=== PATIENT | female | born 1995 | race Two or more races ===

== ENCOUNTER 2017-12-31 14:48 | Outpatient (CLI) | payer BC, OTHER | END 2017-12-31 23:59 | disposition home or self-care (01) | LOC: 64 CT 14:48 | PROVIDERS: ATTEND Family Medicine | DX: G93.0 Cerebral cysts (principal); R13.14 Dysphagia, pharyngoesophageal phase; R43.9 Unspecified disturbances of smell and taste | CPT/HCPCS: 70450; 70486 ==

== ENCOUNTER 2018-02-09 15:04 | Outpatient (CLI) | payer OTHER | END 2018-02-09 23:59 | disposition home or self-care (01) | LOC: RAD 15:04 | PROVIDERS: ATTEND Family Medicine | DX: G93.0 Cerebral cysts (principal); R13.14 Dysphagia, pharyngoesophageal phase; R43.8 Other disturbances of smell and taste | CPT/HCPCS: 70551 ==

== ENCOUNTER 2018-05-05 07:43 | Day surgery (SDC) | payer OTHER ==
[~2018-05-05] VITALS: Ht 162.6 cm; Wt 47.7 kg
[2018-05-05 07:50] VITALS: BP 110/69
[2018-05-05] MEDS ORDERED: NO HOME MEDS (07:54)
[2018-05-05 08:07] LABS: PREOP URINE HCG NEGATIVE (NEGATIVE)
[2018-05-05] MEDS ORDERED: fentaNYL/PF 50MCG/1 ML 2ML syringe ONE (08:47)
[2018-05-05] MEDS ORDERED: MIDAZolam 5mg/5ml vial ONE (08:47)
[2018-05-05] MEDS ORDERED: LIDOcaine Viscous 15ml cup ONE (08:47)
[2018-05-05] MEDS ORDERED: ondansetron/PF 4mg/2ml inj ONE (08:57)
[2018-05-05 09:45] VITALS: BP 125/89
[2018-05-05 09:55] VITALS: BP 109/69
[2018-05-05 10:05] VITALS: BP 102/69
[2018-05-05 10:15] VITALS: BP 105/69
== END 2018-05-05 10:20 | disposition home or self-care (01) ==
LOC: GI LAB 07:43
PROVIDERS: ATTEND Internal Medicine Gastroenterology
DX: R13.14 Dysphagia, pharyngoesophageal phase (principal); K22.8 Other specified diseases of esophagus; Z86.69 Personal history of other diseases of the nervous system and sense organs
CPT/HCPCS: 43239; 43453; 81025; 99152; J2250; J2405; J3010; J7030; A4620

== ENCOUNTER 2018-07-23 08:50 | Outpatient (CLI) | payer OTHER ==
[~2018-07-23 08:50] MED LIST: NO HOME MEDS
[2018-07-23] MEDS ORDERED: barium sulfate 450ml oral suspension ONE (09:00)
== END 2018-07-23 23:59 | disposition home or self-care (01) ==
LOC: RAD 08:50
PROVIDERS: ATTEND Internal Medicine Gastroenterology
DX: R13.10 Dysphagia, unspecified (principal)
CPT/HCPCS: 74220

== ENCOUNTER 2018-08-27 11:12 | Outpatient (CLI) | payer OTHER ==
[2018-08-27 12:00] LABS: BASOPHILS # (AUTO) 0.1 X10'3 (0-0.2); EOSINOPHILS # (AUTO) 0.2 X10'3 (0-0.9); EOSINOPHILS % (AUTO) 2.2 % (0-6); HEMOGLOBIN 13.8 g/dl (12.0-16.0); LYMPHOCYTES # (AUTO) 3.3 X10'3 (1.1-4.8); LYMPHOCYTES % (AUTO) 45.6 % (21-51); MEAN CORPUSCULAR HGB CONC 33.5 g/dL (33.0-36.5); MEAN CORPUSCULAR VOLUME 89.5 FL (78-98); MEAN PLATELET VOLUME 6.8 FL (7.4-10.4); MONOCYTES # (AUTO) 0.5 X10'3 (0-0.9); NEUTROPHILS # (AUTO) 3.2 X10'3 (1.8-7.7); NEUTROPHILS % (AUTO) 44.2 % (42-75); PLATELET COUNT 373 X10'3 (140-440); RED BLOOD COUNT 4.58 X10'6 (4.20-5.60); RED CELL DISTRIBUTION WIDTH 13.6 % (11.5-14.5); WHITE BLOOD COUNT 7.3 X10'3 (4.5-11.0)
[2018-08-27 12:21] LABS: CLARITY,URINE CLEAR (Clear); COLOR,URINE YELLOW (Yellow); GLUCOSE, URINE NEGATIVE (Neg); KETONES,URINE NEGATIVE (Neg); LEUKOCYTE ESTERASE ,URINE NEGATIVE (Neg); NITRITES, URINE NEGATIVE (Neg); OCCULT BLOOD,URINE TRACE-INTACT (Neg); PROTEIN,URINE NEGATIVE (Neg); UROBILINOGEN,URINE 0.2 E.U/dL (0.2-1.0)
[2018-08-27 12:29] LABS: ALANINE AMINOTRANSFERASE 24 U/L (12-78); ALBUMIN 3.8 G/DL (3.4-5.0); ALBUMIN/GLOBULIN RATIO 1.2 (1.1-1.5); ALKALINE PHOSPHATASE 90 IU/L (46-116); ANION GAP 8 (8-16); ASPARTATE AMINO TRANSFERASE 14 U/L (10-37); BILIRUBIN,TOTAL 0.5 MG/DL (0.1-1.0); BLOOD UREA NITROGEN 9 MG/DL (7-18); BUN/CREATININE RATIO 13.6 (6.6-38.0); CALCIUM 9.3 MG/DL (8.5-10.1); CHLORIDE 104 MMOL/L (99-107); CHOL/HDL RATIO 2.7 (0.00-4.99); CHOLESTEROL 153 MG/DL (0-200); CREATININE 0.66 MG/DL (0.40-0.90); GLUCOSE 86 MG/DL (70-104); HDL CHOLESTEROL 56 MG/DL (35-60); LDL CHOLESTEROL 87 MG/DL (50-100); POTASSIUM 3.8 MMOL/L (3.5-5.1); SODIUM 142 MMOL/L (135-145); TOTAL CARBON DIOXIDE 29.7 MMOL/L (24-32); TRIGLYCERIDES 74 MG/DL (20-135); eGFR > 90 ML/MIN
[2018-08-27 12:34] LABS: UA COLLECTION TYPE VOIDED
[2018-08-27 12:35] LABS: BACTERIA,URINE 1+ /HPF (Neg); RBC,URINE 0-2 /HPF (0-2); SQUAMOUS EPITHELIAL CELL,UR MODERATE /LPF (FEW); WBC,URINE 0-4 /HPF (0-4)
[2018-08-27 12:36] LABS: MUCUS STRANDS NONE SEEN /LPF (Neg)
== END 2018-08-27 23:59 | disposition home or self-care (01) ==
LOC: LAB 11:12
PROVIDERS: ATTEND Family Medicine
DX: Z76.89 Persons encountering health services in other specified circumstances (principal)
CPT/HCPCS: 36415; 80053; 80061; 81001; 84436; 84443; 85025

== ENCOUNTER 2018-10-14 12:36 | Outpatient (CLI) | payer OTHER | END 2018-10-14 23:59 | disposition home or self-care (01) | LOC: RAD 12:36 | PROVIDERS: ATTEND Family Medicine | DX: M50.221 Other cervical disc displacement at C4-C5 level (principal); I65.23 Occlusion and stenosis of bilateral carotid arteries; I77.74 Dissection of vertebral artery; R43.8 Other disturbances of smell and taste | CPT/HCPCS: 70540; 70547; 72141 ==

== ENCOUNTER 2019-06-25 15:32 | Inpatient (IN) | payer OTHER ==
[~2019-06-25] VITALS: Ht 160 cm; Wt 48.5 kg
[2019-06-25] MEDS ORDERED: acetaminophen 325mg tablet PO ONE (15:55)
--- NOTE | 2019-06-25 16:43 | NUR ---
Pt ambulated to the restroom without difficulty.
[2019-06-25 17:00] LABS: CLARITY,URINE CLOUDY (Clear); COLOR,URINE YELLOW (Yellow); GLUCOSE, URINE NEGATIVE (Neg); KETONES,URINE 15 mg/dl (Neg); LEUKOCYTE ESTERASE ,URINE NEGATIVE (Neg); NITRITES, URINE NEGATIVE (Neg); OCCULT BLOOD,URINE MODERATE (Neg); PH,URINE 6.5 (4.8-8.0); PROTEIN,URINE NEGATIVE (Neg); UROBILINOGEN,URINE 0.2 E.U/dL (0.2-1.0)
[2019-06-25 17:01] LABS: URINE HCG NEGATIVE (NEG)
[2019-06-25 17:03] LABS: UA COLLECTION TYPE CLN CATCH MIDSTREAM
[2019-06-25 17:06] LABS: RBC,URINE 0-2 /HPF (0-2); WBC,URINE 0-4 /HPF (0-4)
[2019-06-25 17:07] LABS: BACTERIA,URINE 2+ /HPF (Neg); MUCUS STRANDS FEW /LPF (Neg); SQUAMOUS EPITHELIAL CELL,UR MANY /LPF (FEW)
[2019-06-25 17:13] LABS: URINE AMPHETAMINE SCREEN NEGATIVE (Neg); URINE BARBITUATE SCREEN NEGATIVE (Neg); URINE BENZODIAZEPINES SCREEN NEGATIVE (Neg); URINE CANNABINOID SCREEN NEGATIVE (Neg); URINE COCAINE SCREEN NEGATIVE (Neg); URINE METHADONE SCREEN NEGATIVE (Neg); URINE OPIATE SCREEN NEGATIVE (Neg); URINE PHENCYCLIDINE SCREEN NEGATIVE (Neg)
[2019-06-25 17:25] LABS: BASOPHILS # (AUTO) 0.1 X10'3 (0-0.2); BASOPHILS % (AUTO) 0.4 % (0-1); EOSINOPHILS % (AUTO) 0 % (0-6); HEMATOCRIT 38.3 % (35.0-45.0); HEMOGLOBIN 13.1 g/dl (12.0-16.0); LYMPHOCYTES # (AUTO) 1.9 X10'3 (1.1-4.8); LYMPHOCYTES % (AUTO) 13.7 % (21-51); MEAN CORPUSCULAR HGB CONC 34.3 g/dL (33.0-36.5); MEAN CORPUSCULAR VOLUME 87.6 FL (78-98); MEAN PLATELET VOLUME 6.9 FL (7.4-10.4); MONOCYTES # (AUTO) 1.8 X10'3 (0-0.9); MONOCYTES % (AUTO) 12.7 % (2-12); NEUTROPHILS # (AUTO) 10.3 X10'3 (1.8-7.7); NEUTROPHILS % (AUTO) 73.2 % (42-75); PLATELET COUNT 322 X10'3 (140-440); RED BLOOD COUNT 4.37 X10'6 (4.20-5.60); RED CELL DISTRIBUTION WIDTH 13.5 % (11.5-14.5)
[2019-06-25] MEDS ORDERED: ibuprofen 200mg tablet PO ONE (17:35)
[2019-06-25] MEDS ORDERED: normal saline 1000ML IV soln IVB ONE (17:35)
[2019-06-25 17:49] LABS: ALANINE AMINOTRANSFERASE 16 U/L (12-78); ALBUMIN 3.9 G/DL (3.4-5.0); ALBUMIN/GLOBULIN RATIO 1.1 (1.1-1.5); ALKALINE PHOSPHATASE 80 IU/L (46-116); ANION GAP 13 (8-16); ASPARTATE AMINO TRANSFERASE 12 U/L (10-37); BILIRUBIN,TOTAL 0.5 MG/DL (0.1-1.0); BLOOD UREA NITROGEN 13 MG/DL (7-18); BUN/CREATININE RATIO 21.7 (6.6-38.0); CALCIUM 8.7 MG/DL (8.5-10.1); CHLORIDE 96 MMOL/L (99-107); GLUCOSE 134 MG/DL (70-104); SODIUM 133 MMOL/L (135-145); TOTAL CARBON DIOXIDE 24.1 MMOL/L (24-32); TOTAL PROTEIN 7.6 G/DL (6.4-8.2); eGFR > 90 ML/MIN
[2019-06-25] MEDS ORDERED: potassium Cl 20 mEq SR tablet PO STA (17:58)
[2019-06-25] MEDS ORDERED: dexamethasone sod phosphate 10mg/ml inj IV STA (20:57)
[2019-06-25] MEDS ORDERED: ondansetron/PF 4mg/2ml inj IV PRN (21:00)
[2019-06-25] MEDS ORDERED: magnesium 2GM in 50ml NS 50 ML IV PRN (21:00)
[2019-06-25] MEDS ORDERED: magnesium hydroxide 30ml (MOM) UD suspension PO PRN (21:00)
[2019-06-25] MEDS ORDERED: magnesium Cl slow-release 64mg tablet PO PRN (21:00)
[2019-06-25] MEDS ORDERED: normal saline 1000ml 1,000 ML IV ONE (21:00)
[2019-06-25] MEDS ORDERED: mag hydrox/Alum hydrox/simeth 30ml oral suspension PO PRN (21:00)
[2019-06-25] MEDS ORDERED: CefTRIAXone 2gm/D5W 50ml 50 ML IV ONE (21:00)
[2019-06-25] MEDS ORDERED: potassium Cl 20 mEq SR tablet PO PRN (21:00)
[2019-06-25] MEDS ORDERED: potassium CL 10mEq/100ml bag 100 ML IV PRN ×2 (21:00)
[2019-06-25] MEDS ORDERED: magnesium 4gm in 100ml NS 100 ML IV PRN (21:00)
[2019-06-25 21:42] LABS: GLUCOSE,CSF 80 MG/DL (40-75); TOTAL PROTEIN,CSF 42 MG/DL (15-45)
[2019-06-25 21:43] LABS: APPEARANCE,CSF CLEAR
[2019-06-25 21:44] LABS: CSF SUPERNATANT COLOR COLORLESS; CSF VOLUME 8 ML; TUBE# COUNTED 1
[2019-06-25 21:45] LABS: CSF RBC 5 /CU MM (0); LYMPHOCYTES,CSF 98 % (40-80); MONOCYTES,CSF 2 % (15-45)
[2019-06-25 21:47] LABS: APPEARANCE,CSF CLEAR; CSF SUPERNATANT COLOR COLORLESS; CSF VOLUME 8 ML; CSF WBC CT 63 /CU MM (0-5); TUBE# COUNTED 4
[2019-06-25 21:49] LABS: CSF RBC 0 /CU MM (0); CSF WBC CT 61 /CU MM (0-5); LYMPHOCYTES,CSF 96 % (40-80); MONOCYTES,CSF 4 % (15-45)
[2019-06-25] MEDS ORDERED: ibuprofen tablet 400 MG TABLET PO PRN (22:40)
[2019-06-25] MEDS ORDERED: NORMAL SALINE IV SCH (22:56)
[2019-06-25] MEDS ORDERED: ACYCLOVIR IV SCH (22:56)
[2019-06-25] MEDS ORDERED: acyclovir inj 500 MG in normal saline 100ml IV soln 100 ML IV ONE (23:15)
--- NOTE | 2019-06-26 00:15 | NUR ---
Patient arrived to unit via wheelchair. Altered LOC, word salad noted, patient only oriented to person, is aware of her occupation, can give her birthdate and spouses name. Patient is unable to remember the name of the unit she is employed on or the name of the facility yet knows she works here.
[2019-06-26 03:21] VITALS: BP 132/80
[2019-06-26] MEDS: acetaminophen 325mg tablet PO PRN ×3 (04:53→20:30)
[2019-06-26] MEDS: acyclovir inj 500 MG in normal saline 100ml IV soln 100 ML IV SCH ×3 (05:56→21:53)
[2019-06-26 06:00] VITALS: BP 117/70
--- NOTE | 2019-06-26 06:20 | NUR ---
Problems reprioritized. Patient report given, questions answered & plan of care reviewed with Lennie ALBERTS.
--- NOTE | 2019-06-26 06:43 | NUR ---
This RN noted change in patient mental status. patient was not only having word salad now was not comprehending what this RN was asking.
[2019-06-26 08:00] LABS: BASOPHILS % (AUTO) 0.2 % (0-1); EOSINOPHILS % (AUTO) 0 % (0-6); HEMATOCRIT 37.7 % (35.0-45.0); HEMOGLOBIN 12.9 g/dl (12.0-16.0); LYMPHOCYTES # (AUTO) 1.2 X10'3 (1.1-4.8); LYMPHOCYTES % (AUTO) 14.5 % (21-51); MEAN CORPUSCULAR HEMOGLOBIN 29.8 PG (27.0-31.0); MEAN CORPUSCULAR HGB CONC 34.2 g/dL (33.0-36.5); MEAN CORPUSCULAR VOLUME 87.2 FL (78-98); MEAN PLATELET VOLUME 6.8 FL (7.4-10.4); MONOCYTES # (AUTO) 1.1 X10'3 (0-0.9); NEUTROPHILS % (AUTO) 72.3 % (42-75); PLATELET COUNT 314 X10'3 (140-440); RED BLOOD COUNT 4.32 X10'6 (4.20-5.60); RED CELL DISTRIBUTION WIDTH 13.8 % (11.5-14.5); WHITE BLOOD COUNT 8.3 X10'3 (4.5-11.0)
[2019-06-26] MEDS: K and/or MAG REPLACEMENT MC SCH ×2 (08:00→20:00)
[2019-06-26 08:11] LABS: ALBUMIN 3.6 G/DL (3.4-5.0); ANION GAP 9 (8-16); BLOOD UREA NITROGEN 6 MG/DL (7-18); BUN/CREATININE RATIO 10.2 (6.6-38.0); CALCIUM 8.4 MG/DL (8.5-10.1); CHLORIDE 101 MMOL/L (99-107); CREATININE 0.59 MG/DL (0.40-0.90); GLUCOSE 133 MG/DL (70-104); MAGNESIUM 2.1 MG/DL (1.5-2.4); POTASSIUM 3.5 MMOL/L (3.5-5.1); SODIUM 133 MMOL/L (135-145); TOTAL CARBON DIOXIDE 23.3 MMOL/L (24-32); eGFR > 90 ML/MIN
[2019-06-26] MEDS ORDERED: LORazepam 2 mg/ml vial IV PRN (09:00)
[2019-06-26] MEDS: CefTRIAXone 2gm/D5W 50ml 50 ML IV SCH ×2 (09:19→19:29)
[2019-06-26 10:00] VITALS: BP 111/72
[2019-06-26] MEDS: enoxaparin 40mg/0.4ml syringe SQ SCH (11:00)
[2019-06-26] MEDS: normal saline 1000ml 1,000 ML IV SCH (11:49)
[2019-06-26] MEDS ORDERED: gadobutrol 10mmol/10ml inj. IV ONE (16:04)
[2019-06-26 18:00] VITALS: BP 109/73
--- NOTE | 2019-06-26 18:20 | NUR ---
Received patient report from LEXUS Jones.
[2019-06-26 22:00] VITALS: BP 123/70
[2019-06-27 02:00] VITALS: BP 131/84
[2019-06-27] MEDS: acetaminophen 325mg tablet PO PRN ×2 (02:54→16:03)
[2019-06-27] MEDS: acyclovir inj 500 MG in normal saline 100ml IV soln 100 ML IV SCH ×3 (05:43→22:17)
[2019-06-27] MEDS: normal saline 1000ml 1,000 ML IV SCH ×3 (05:43→19:27)
[2019-06-27 06:00] VITALS: BP 114/63
[2019-06-27 06:01] LABS: ALBUMIN 3.1 G/DL (3.4-5.0); ANION GAP 6 (8-16); BLOOD UREA NITROGEN 6 MG/DL (7-18); BUN/CREATININE RATIO 9.1 (6.6-38.0); CALCIUM 8.1 MG/DL (8.5-10.1); CHLORIDE 105 MMOL/L (99-107); CREATININE 0.66 MG/DL (0.40-0.90); GLUCOSE 97 MG/DL (70-104); MAGNESIUM 2.1 MG/DL (1.5-2.4); POTASSIUM 3.1 MMOL/L (3.5-5.1); SODIUM 138 MMOL/L (135-145); TOTAL CARBON DIOXIDE 27.4 MMOL/L (24-32); eGFR > 90 ML/MIN
[2019-06-27 06:16] LABS: BASOPHILS # (AUTO) 0.1 X10'3 (0-0.2); BASOPHILS % (AUTO) 0.7 % (0-1); EOSINOPHILS % (AUTO) 0.5 % (0-6); HEMATOCRIT 35.8 % (35.0-45.0); HEMOGLOBIN 12.4 g/dl (12.0-16.0); LYMPHOCYTES # (AUTO) 2.6 X10'3 (1.1-4.8); LYMPHOCYTES % (AUTO) 30.4 % (21-51); MEAN CORPUSCULAR HEMOGLOBIN 30.2 PG (27.0-31.0); MEAN CORPUSCULAR HGB CONC 34.7 g/dL (33.0-36.5); MEAN PLATELET VOLUME 6.9 FL (7.4-10.4); MONOCYTES # (AUTO) 1.3 X10'3 (0-0.9); MONOCYTES % (AUTO) 15.3 % (2-12); NEUTROPHILS # (AUTO) 4.5 X10'3 (1.8-7.7); NEUTROPHILS % (AUTO) 53.1 % (42-75); PLATELET COUNT 292 X10'3 (140-440); RED BLOOD COUNT 4.11 X10'6 (4.20-5.60); RED CELL DISTRIBUTION WIDTH 13.7 % (11.5-14.5); WHITE BLOOD COUNT 8.4 X10'3 (4.5-11.0)
--- NOTE | 2019-06-27 06:27 | NUR ---
Patient report given, questions answered and plan of care reviewed with LEXUS Jones.
[2019-06-27] MEDS: K and/or MAG REPLACEMENT MC SCH ×2 (08:00→20:00)
[2019-06-27] MEDS: potassium Cl 20 mEq SR tablet PO PRN ×3 (09:21→23:25)
[2019-06-27] MEDS: enoxaparin 40mg/0.4ml syringe SQ SCH (09:23)
[2019-06-27 10:00] VITALS: BP 118/74
[2019-06-27 16:00] VITALS: BP 112/69
--- NOTE | 2019-06-27 16:10 | NUR ---
Tylenol given po, then notified Dr Saldana of elevated temp & treatment. Continue to monitor.
[2019-06-27 18:00] VITALS: BP 100/54
--- NOTE | 2019-06-27 18:33 | NUR ---
RECEIVED REPORT FROM MAYTE ALBERTS AND ASSUMED PATIENT CARE
--- NOTE | 2019-06-27 21:23 | NUR ---
REPORT GIVEN TO KATEY LEXUS
[2019-06-27 22:00] VITALS: BP 97/62
[2019-06-28] VITALS (7 sets, daily range): BP systolic 99–113; BP diastolic 51–73
[2019-06-28] MEDS: acetaminophen 325mg tablet PO PRN ×3 (01:54→22:08)
[2019-06-28] MEDS: acyclovir inj 500 MG in normal saline 100ml IV soln 100 ML IV SCH ×3 (05:43→21:13)
[2019-06-28 06:31] LABS: BASOPHILS # (AUTO) 0.1 X10'3 (0-0.2); BASOPHILS % (AUTO) 0.7 % (0-1); EOSINOPHILS # (AUTO) 0.1 X10'3 (0-0.9); EOSINOPHILS % (AUTO) 0.8 % (0-6); HEMATOCRIT 35.8 % (35.0-45.0); HEMOGLOBIN 12.4 g/dl (12.0-16.0); LYMPHOCYTES # (AUTO) 3.7 X10'3 (1.1-4.8); LYMPHOCYTES % (AUTO) 47.8 % (21-51); MEAN CORPUSCULAR HEMOGLOBIN 30.6 PG (27.0-31.0); MEAN CORPUSCULAR HGB CONC 34.7 g/dL (33.0-36.5); MEAN CORPUSCULAR VOLUME 88.1 FL (78-98); MEAN PLATELET VOLUME 6.9 FL (7.4-10.4); MONOCYTES % (AUTO) 12.6 % (2-12); NEUTROPHILS # (AUTO) 2.9 X10'3 (1.8-7.7); NEUTROPHILS % (AUTO) 38.1 % (42-75); PLATELET COUNT 263 X10'3 (140-440); RED BLOOD COUNT 4.06 X10'6 (4.20-5.60); RED CELL DISTRIBUTION WIDTH 13.6 % (11.5-14.5); WHITE BLOOD COUNT 7.7 X10'3 (4.5-11.0)
[2019-06-28 06:43] LABS: ALBUMIN 2.8 G/DL (3.4-5.0); ANION GAP 5 (8-16); BLOOD UREA NITROGEN 7 MG/DL (7-18); BUN/CREATININE RATIO 12.1 (6.6-38.0); CHLORIDE 108 MMOL/L (99-107); CREATININE 0.58 MG/DL (0.40-0.90); GLUCOSE 90 MG/DL (70-104); MAGNESIUM 2.4 MG/DL (1.5-2.4); POTASSIUM 3.8 MMOL/L (3.5-5.1); SODIUM 141 MMOL/L (135-145); eGFR > 90 ML/MIN
--- NOTE | 2019-06-28 06:54 | NUR ---
Patient in room [facility]TH[facility] 4017. I have received report from LEXUS DEL TORO and had the opportunity to ask questions and assume patient care.
[2019-06-28] MEDS: K and/or MAG REPLACEMENT MC SCH ×2 (07:12→20:00)
[2019-06-28] MEDS: enoxaparin 40mg/0.4ml syringe SQ SCH (09:17)
--- NOTE | 2019-06-28 15:37 | NUR ---
REASSESSED PTS FEVER...DOWN TO 99.7. PT NOTICED PALMS OF BOTH HANDS ARE WARM AND RED.
--- NOTE | 2019-06-28 18:35 | NUR ---
Problems reprioritized. Patient report given, questions answered & plan of care reviewed with LEXUS ZURITA.
--- NOTE | 2019-06-28 19:59 | NUR ---
Patient in room [facility]TH[facility] 4017. I have received report from LEXUS Chacko and had the opportunity to ask questions and assume patient care. Addendum: 06/28/19 at 1999 by Shanelle Trammell RN Amended: Links added.
[2019-06-28] MEDS: normal saline 1000ml 1,000 ML IV SCH (21:14)
[2019-06-29 05:00] VITALS: BP 111/63
[2019-06-29 05:06] LABS: BASOPHILS # (AUTO) 0.1 X10'3 (0-0.2); BASOPHILS % (AUTO) 0.7 % (0-1); EOSINOPHILS # (AUTO) 0.2 X10'3 (0-0.9); EOSINOPHILS % (AUTO) 2.6 % (0-6); HEMATOCRIT 35.8 % (35.0-45.0); HEMOGLOBIN 12.5 g/dl (12.0-16.0); LYMPHOCYTES # (AUTO) 3.6 X10'3 (1.1-4.8); LYMPHOCYTES % (AUTO) 48.8 % (21-51); MEAN CORPUSCULAR HEMOGLOBIN 30.3 PG (27.0-31.0); MEAN CORPUSCULAR HGB CONC 34.8 g/dL (33.0-36.5); MEAN PLATELET VOLUME 6.9 FL (7.4-10.4); MONOCYTES # (AUTO) 0.7 X10'3 (0-0.9); MONOCYTES % (AUTO) 9.9 % (2-12); NEUTROPHILS # (AUTO) 2.8 X10'3 (1.8-7.7); PLATELET COUNT 272 X10'3 (140-440); RED BLOOD COUNT 4.11 X10'6 (4.20-5.60); RED CELL DISTRIBUTION WIDTH 13.6 % (11.5-14.5); WHITE BLOOD COUNT 7.4 X10'3 (4.5-11.0)
[2019-06-29 05:21] VITALS: BP 111/63
[2019-06-29] MEDS: acyclovir inj 500 MG in normal saline 100ml IV soln 100 ML IV SCH ×2 (05:25→14:00)
[2019-06-29 05:33] LABS: ALBUMIN 2.9 G/DL (3.4-5.0); ANION GAP 7 (8-16); BLOOD UREA NITROGEN 5 MG/DL (7-18); BUN/CREATININE RATIO 8.3 (6.6-38.0); CALCIUM 8.1 MG/DL (8.5-10.1); CHLORIDE 107 MMOL/L (99-107); GLUCOSE 90 MG/DL (70-104); MAGNESIUM 2.2 MG/DL (1.5-2.4); POTASSIUM 3.6 MMOL/L (3.5-5.1); SODIUM 140 MMOL/L (135-145); TOTAL CARBON DIOXIDE 26.5 MMOL/L (24-32); eGFR > 90 ML/MIN
--- NOTE | 2019-06-29 06:04 | NUR ---
Problems reprioritized. Patient report given, questions answered & plan of care reviewed with LEXUS Chacko. Addendum: 06/29/19 at 0605 by Shanelle Trammell RN Amended: Links added.
--- NOTE | 2019-06-29 06:22 | NUR ---
Patient in room ORTH[facility] 4017. I have received report from LEXUS Liu and had the opportunity to ask questions and assume patient care.
[2019-06-29 07:24] VITALS: BP 104/80
[2019-06-29] MEDS: acetaminophen 325mg tablet PO PRN (07:56)
[2019-06-29] MEDS: K and/or MAG REPLACEMENT MC SCH (08:00)
[2019-06-29] MEDS: enoxaparin 40mg/0.4ml syringe SQ SCH (08:00)
[2019-06-29 10:00] VITALS: BP 98/52
--- NOTE | 2019-06-29 10:56 | NUR ---
Student documentation: I have reviewed all interventions, assessments performed and documented by Harpreet Deleon. Student Medication Administration: For this medication-pass time frame, all medication were reviewed, dispensed, administered and documented per hospital policy by Harpreet Deleon.
[2019-06-29 12:31] VITALS: BP 96/63
--- NOTE | 2019-06-29 13:51 | NUR ---
Initial: Pt admit w/ HSV encephalitis PO fluctuating overall 75% avg regular meals meeting needs. LBM 06/29 s/p MoM PRN 06/27. No nutrition concerns at this time. Will continue to monitor. Rec: 1. continue regular diet 2. monitor for ONS needs if PO declines 3. bowel care as needed 4. wt per rx Addendum: 06/29/19 at [address] Amended: Links added.
--- NOTE | 2019-06-29 14:34 | NUR ---
PT BEING DC'D, I WAS ADVISED BY CASE MANAGEMENT NOT TO GIVE 1400 ACYCLOVIR. PT IS GOING TO [facility] AFTER DC TO BE SET UP ON MEDICATION.
[2019-06-30 11:29] LABS: HSV 1 PCR Positive (Negative); HSV 2 PCR Negative (Negative)
== END 2019-06-29 15:20 | disposition home health service (06) | DRG 97 ==
LOC: ER 15:33 → EEVIPCON 15:33 → ED HOLD 20:58 → ORTHO 4S 06-26 00:08
PROVIDERS: ADMIT Hospitalist; ATTEND Hospitalist
PROC: 009U3ZX Drainage of Spinal Canal, Percutaneous Approach, Diagnostic (ICD-10-PCS; principal; 2019-06-25)
DX: B00.4 Herpesviral encephalitis (principal); G03.9 Meningitis, unspecified; G93.40 Encephalopathy, unspecified; E87.6 Hypokalemia
CPT/HCPCS: 36415; 36573; 62270; 70450; 70544; 70547; 70551; 71045; 76937; 80048; 80053; 80305; 81001; 81025; 82945; 83605; 83735; 84145; 84157; 85025; 86695; 86696; 87015; 87040; 87070; 87502; 87503; 87529; 89051; 92507; 92508; 92523; 96360; 99285; A9585; G0378; J0133; J0696; J1100; J1650; J2060; J7030

== ENCOUNTER 2019-08-08 22:46 | Emergency (ER) | payer OTHER ==
[~2019-08-08] VITALS: Ht 162.6 cm; Wt 50.0 kg
[2019-08-08 23:44] LABS: EOSINOPHILS # (AUTO) 0.2 X10'3 (0-0.9); MEAN CORPUSCULAR VOLUME 92.2 FL (78-98); MEAN PLATELET VOLUME 6.8 FL (7.4-10.4); WHITE BLOOD COUNT 11.6 X10'3 (4.5-11.0)
[2019-08-08 23:46] LABS: BASOPHILS # (AUTO) 0.1 X10'3 (0-0.2); BASOPHILS % (AUTO) 0.8 % (0-1); EOSINOPHILS % (AUTO) 1.4 % (0-6); HEMATOCRIT 42.3 % (35.0-45.0); LYMPHOCYTES # (AUTO) 4.3 X10'3 (1.1-4.8); MEAN CORPUSCULAR HEMOGLOBIN 30.4 PG (27.0-31.0); MONOCYTES % (AUTO) 8.3 % (2-12); NEUTROPHILS # (AUTO) 6.1 X10'3 (1.8-7.7); NEUTROPHILS % (AUTO) 52.5 % (42-75); PLATELET COUNT 445 X10'3 (140-440); RED BLOOD COUNT 4.59 X10'6 (4.20-5.60); RED CELL DISTRIBUTION WIDTH 15.6 % (11.5-14.5)
[2019-08-08] MEDS ORDERED: LIDOcaine 1% 30ml preserv. free vial IJ ONE (23:55)
[2019-08-08 23:58] LABS: PARTIAL THROMBOPLASTIN TIME 27 SECONDS (22-32)
[2019-08-09 00:02] LABS: ALANINE AMINOTRANSFERASE 11 U/L (12-78); ALBUMIN/GLOBULIN RATIO 1.1 (1.1-1.5); ALKALINE PHOSPHATASE 106 IU/L (46-116); ANION GAP 10 (8-16); ASPARTATE AMINO TRANSFERASE 12 U/L (10-37); BILIRUBIN,TOTAL 0.3 MG/DL (0.1-1.0); BLOOD UREA NITROGEN 9 MG/DL (7-18); BUN/CREATININE RATIO 15.3 (6.6-38.0); CALCIUM 9.2 MG/DL (8.5-10.1); CHLORIDE 104 MMOL/L (99-107); CREATININE 0.59 MG/DL (0.40-0.90); GLUCOSE 118 MG/DL (70-104); POTASSIUM 3.9 MMOL/L (3.5-5.1); SODIUM 138 MMOL/L (135-145); TOTAL CARBON DIOXIDE 24.1 MMOL/L (24-32); TOTAL PROTEIN 7.8 G/DL (6.4-8.2); eGFR > 90 ML/MIN
[2019-08-09 00:12] LABS: MAGNESIUM 2.3 MG/DL (1.5-2.4)
[2019-08-09 00:15] LABS: ETHANOL < 0.010 GM/DL (0.0-0.010)
[2019-08-09 00:36] LABS: CLARITY,URINE CLEAR (Clear); COLOR,URINE YELLOW (Yellow); GLUCOSE, URINE NEGATIVE (Neg); KETONES,URINE NEGATIVE (Neg); LEUKOCYTE ESTERASE ,URINE NEGATIVE (Neg); NITRITES, URINE NEGATIVE (Neg); OCCULT BLOOD,URINE TRACE-INTACT (Neg); PROTEIN,URINE NEGATIVE (Neg); URINE HCG NEGATIVE (NEG); UROBILINOGEN,URINE 0.2 E.U/dL (0.2-1.0)
--- NOTE | 2019-08-09 00:40 | NUR ---
Spinal tap completed by Dr. Younger. Pt's Sister remains at bedside. Pt remains a&ox2-3. When speaking regularly cannot finish sentence and is appoligetic for forgetting. requests Pt to lie flat on her back untiil the spinal fluid resulted. SBAR to LEXUS Anne.
[2019-08-09 00:48] LABS: URINE AMPHETAMINE SCREEN NEGATIVE (Neg); URINE BARBITUATE SCREEN NEGATIVE (Neg); URINE BENZODIAZEPINES SCREEN NEGATIVE (Neg); URINE CANNABINOID SCREEN NEGATIVE (Neg); URINE COCAINE SCREEN NEGATIVE (Neg); URINE METHADONE SCREEN NEGATIVE (Neg); URINE OPIATE SCREEN NEGATIVE (Neg); URINE PHENCYCLIDINE SCREEN NEGATIVE (Neg)
[2019-08-09 00:56] LABS: APPEARANCE,CSF CLEAR; CSF SUPERNATANT COLOR COLORLESS; TUBE# COUNTED 4
[2019-08-09 00:58] LABS: CSF RBC 1 /CU MM (0); CSF WBC CT 16 /CU MM (0-5)
[2019-08-09 01:04] LABS: GLUCOSE,CSF 75 MG/DL (40-75); TOTAL PROTEIN,CSF 58 MG/DL (15-45)
[2019-08-09 01:12] LABS: UA COLLECTION TYPE OTHER
[2019-08-09 01:14] LABS: BACTERIA,URINE FEW /HPF (Neg); RBC,URINE NONE SEEN /HPF (0-2); SQUAMOUS EPITHELIAL CELL,UR MODERATE /LPF (FEW); WBC,URINE 0-4 /HPF (0-4)
[2019-08-09 01:15] LABS: MUCUS STRANDS MODERATE /LPF (Neg)
[2019-08-09 02:08] VITALS: BP 142/97
[2019-08-09 03:18] LABS: LYMPHOCYTES,CSF 100 % (40-80)
== END 2019-08-09 02:09 | disposition home or self-care (01) ==
LOC: ER 22:47
DX: R41.82 Altered mental status, unspecified (principal); Z86.61 Personal history of infections of the central nervous system
CPT/HCPCS: 36415; 62270; 70450; 80053; 80305; 80320; 81001; 81025; 82945; 83605; 83735; 84145; 84157; 84439; 84443; 85025; 85610; 85730; 87015; 87040; 87070; 87529; 89051; 99285

== ENCOUNTER 2019-08-12 08:34 | Outpatient (CLI) | payer OTHER ==
[2019-08-12] MEDS ORDERED: gadobutrol 10mmol/10ml inj. IV ONE (17:56)
== END 2019-08-12 23:59 | disposition home or self-care (01) ==
LOC: RAD 08:34
PROVIDERS: ATTEND Internal Medicine Infectious Disease
DX: B00.4 Herpesviral encephalitis (principal)
CPT/HCPCS: 70553; A9585

== ENCOUNTER 2021-01-15 07:21 | Outpatient (CLI) | payer OTHER ==
[2021-01-15 08:08] LABS: BASOPHILS # (AUTO) 0.1 X10'3 (0-0.2); BASOPHILS % (AUTO) 0.5 % (0-1); EOSINOPHILS # (AUTO) 0.2 X10'3 (0-0.9); EOSINOPHILS % (AUTO) 1.5 % (0-6); HEMATOCRIT 37.9 % (35.0-45.0); HEMOGLOBIN 12.5 g/dl (12.0-16.0); LYMPHOCYTES # (AUTO) 2.9 X10'3 (1.1-4.8); LYMPHOCYTES % (AUTO) 24.7 % (21-51); MEAN CORPUSCULAR HEMOGLOBIN 29.3 PG (27.0-31.0); MEAN CORPUSCULAR VOLUME 88.6 FL (78-98); MEAN PLATELET VOLUME 6.9 FL (7.4-10.4); MONOCYTES # (AUTO) 0.9 X10'3 (0-0.9); MONOCYTES % (AUTO) 7.6 % (2-12); NEUTROPHILS # (AUTO) 7.7 X10'3 (1.8-7.7); NEUTROPHILS % (AUTO) 65.7 % (42-75); PLATELET COUNT 381 X10'3 (140-440); RED BLOOD COUNT 4.28 X10'6 (4.20-5.60); RED CELL DISTRIBUTION WIDTH 13.9 % (11.5-14.5); WHITE BLOOD COUNT 11.8 X10'3 (4.5-11.0)
[2021-01-15 08:40] LABS: ALANINE AMINOTRANSFERASE 24 U/L (12-78); ALBUMIN 3.7 G/DL (3.4-5.0); ALKALINE PHOSPHATASE 98 IU/L (46-116); ANION GAP 8 (8-16); ASPARTATE AMINO TRANSFERASE 10 U/L (10-37); BILIRUBIN,TOTAL 0.4 MG/DL (0.1-1.0); BLOOD UREA NITROGEN 5 MG/DL (7-18); BUN/CREATININE RATIO 9.6 (6.6-38.0); CALCIUM 8.7 MG/DL (8.5-10.1); CHLORIDE 105 MMOL/L (99-107); CHOL/HDL RATIO 2.9 (0.00-4.99); CHOLESTEROL 165 MG/DL (0-200); CREATININE 0.52 MG/DL (0.40-0.90); GLUCOSE 87 MG/DL (70-104); HDL CHOLESTEROL 57 MG/DL (35-60); LDL CHOLESTEROL 79 MG/DL (50-100); POTASSIUM 3.2 MMOL/L (3.5-5.1); SODIUM 139 MMOL/L (135-145); TOTAL CARBON DIOXIDE 26.3 MMOL/L (24-32); TOTAL PROTEIN 7.3 G/DL (6.4-8.2); TRIGLYCERIDES 91 MG/DL (20-135); eGFR > 90 ML/MIN
[2021-01-15 09:15] LABS: UA COLLECTION TYPE CLN CATCH MIDSTREAM
[2021-01-15 09:16] LABS: CLARITY,URINE CLEAR (Clear); COLOR,URINE YELLOW (Yellow)
[2021-01-15 09:17] LABS: GLUCOSE, URINE NEGATIVE (Neg); KETONES,URINE NEGATIVE (Neg); OCCULT BLOOD,URINE NEGATIVE (Neg); PROTEIN,URINE NEGATIVE (Neg)
[2021-01-15 09:18] LABS: LEUKOCYTE ESTERASE ,URINE NEGATIVE (Neg); NITRITES, URINE NEGATIVE (Neg); UROBILINOGEN,URINE 0.2 E.U/dL (0.2-1.0)
== END 2021-01-15 23:59 | disposition home or self-care (01) ==
LOC: LAB 07:21
PROVIDERS: ATTEND Family Medicine
DX: Z00.00 Encounter for general adult medical examination without abnormal findings (principal)
CPT/HCPCS: 36415; 80053; 80061; 81003; 84439; 84443; 85025

== ENCOUNTER 2023-02-04 15:05 | Emergency (ER) | payer BC, OTHER ==
[~2023-02-04] VITALS: Ht 157.5 cm; Wt 65.0 kg
[2023-02-04 16:56] VITALS: BP 117/82; PULSE 93; RESP 6; O2SAT 98
[2023-02-04 17:09] VITALS: TEMP 98.4
--- NOTE | 2023-02-04 17:28 | NUR ---
PT. 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
[2023-02-04] MEDS ORDERED: PRED20TA PO (19:23)
== END 2023-02-04 19:57 | disposition home or self-care (01) ==
LOC: ER 15:05
DX: M54.12 Radiculopathy, cervical region (principal)
CPT/HCPCS: 99283

== ENCOUNTER 2023-03-18 06:42 | Outpatient (CLI) | payer BC | END 2023-03-18 23:59 | disposition home or self-care (01) | LOC: LAB 06:42 | PROVIDERS: ATTEND Registered Nurse | DX: Q76.5 Cervical rib (principal); M54.2 Cervicalgia; M54.6 Pain in thoracic spine | CPT/HCPCS: 72074 ==

== ENCOUNTER 2023-06-30 06:34 | Outpatient (CLI) | payer BC ==
[2023-06-30 07:14] LABS: BILIRUBIN,URINE NEGATIVE (Neg); CLARITY,URINE SLIGHTLY CLOUDY (Clear); COLOR,URINE YELLOW (Yellow); GLUCOSE, URINE NEGATIVE (Neg); KETONES,URINE NEGATIVE (Neg); LEUKOCYTE ESTERASE ,URINE TRACE (Neg); NITRITES, URINE NEGATIVE (Neg); OCCULT BLOOD,URINE TRACE-INTACT (Neg); PH,URINE 6.5 (4.8-8.0); PROTEIN,URINE NEGATIVE (Neg); UROBILINOGEN,URINE 0.2 E.U/dL (0.2-1.0)
[2023-06-30 07:21] LABS: BASOPHILS # (AUTO) 0.1 X10'3 (0-0.2); BASOPHILS % (AUTO) 0.8 % (0-1); EOSINOPHILS # (AUTO) 0.1 X10'3 (0-0.9); EOSINOPHILS % (AUTO) 1.2 % (0-6); HEMATOCRIT 41.5 % (35.0-45.0); HEMOGLOBIN 13.7 g/dl (12.0-16.0); LYMPHOCYTES # (AUTO) 3.5 X10'3 (1.1-4.8); LYMPHOCYTES % (AUTO) 32.1 % (21-51); MEAN CORPUSCULAR HEMOGLOBIN 28.6 PG (27.0-31.0); MEAN CORPUSCULAR HGB CONC 33.1 g/dL (33.0-36.5); MEAN CORPUSCULAR VOLUME 86.6 FL (78-98); MEAN PLATELET VOLUME 6.9 FL (7.4-10.4); MONOCYTES # (AUTO) 0.7 X10'3 (0-0.9); MONOCYTES % (AUTO) 6.5 % (2-12); NEUTROPHILS # (AUTO) 6.5 X10'3 (1.8-7.7); NEUTROPHILS % (AUTO) 59.4 % (42-75); PLATELET COUNT 473 X10'3 (140-440); RED BLOOD COUNT 4.79 X10'6 (4.20-5.60); RED CELL DISTRIBUTION WIDTH 13.9 % (11.5-14.5)
[2023-06-30 07:30] LABS: BACTERIA,URINE 3+ /HPF (Neg); SQUAMOUS EPITHELIAL CELL,UR MANY /LPF (FEW); UA COLLECTION TYPE CLN CATCH MIDSTREAM
[2023-06-30 07:31] LABS: RBC,URINE 20-50 /HPF (0-2)
[2023-06-30 07:32] LABS: TRANSITIONAL EPI CELLS,URINE FEW /HPF
[2023-06-30 08:03] LABS: ALANINE AMINOTRANSFERASE 15 U/L (12-78); ALBUMIN 4.2 G/DL (3.4-5.0); ALBUMIN/GLOBULIN RATIO 1.2 (1.1-1.5); ALKALINE PHOSPHATASE 118 IU/L (46-116); ANION GAP 8 (8-16); ASPARTATE AMINO TRANSFERASE 7 U/L (10-37); BLOOD UREA NITROGEN 9 MG/DL (7-18); BUN/CREATININE RATIO 13.2 (10.0-20.0); CALCIUM 8.9 MG/DL (8.5-10.1); CHLORIDE 105 MMOL/L (99-107); CHOL/HDL RATIO 2.9 (0.00-4.99); CHOLESTEROL 181 MG/DL (0-200); CREATININE 0.68 MG/DL (0.40-0.90); GLUCOSE 95 MG/DL (70-104); HDL CHOLESTEROL 62 MG/DL (35-60); LDL CHOLESTEROL 89 MG/DL (50-100); POTASSIUM 3.8 MMOL/L (3.5-5.1); SODIUM 141 MMOL/L (135-145); THYROID STIMULATING HORMONE 1.72 ulU/ml (0.34-4.50); TOTAL CARBON DIOXIDE 28.5 MMOL/L (24-32); TOTAL PROTEIN 7.8 G/DL (6.4-8.2); TRIGLYCERIDES 68 MG/DL (20-135); eGFR > 90 ML/MIN
[2023-06-30 08:29] LABS: BILIRUBIN,TOTAL 0.3 MG/DL (0.1-1.0)
== END 2023-06-30 23:59 | disposition home or self-care (01) ==
LOC: LAB 06:34
PROVIDERS: ATTEND Registered Nurse
DX: Z00.01 Encounter for general adult medical examination with abnormal findings (principal); Q76.5 Cervical rib; M54.2 Cervicalgia
CPT/HCPCS: 36415; 80053; 80061; 81001; 82306; 82607; 82746; 84443; 85025

== ENCOUNTER 2023-12-25 13:50 | Outpatient (CLI) | payer BC ==
[2023-12-25] MEDS ORDERED: GADOTERATE MEGLUMINE 7.5 MMOL/15 ML VIAL IV ONE (15:36)
== END 2023-12-25 23:59 | disposition home or self-care (01) ==
LOC: MRI 13:50
PROVIDERS: ATTEND Registered Nurse
DX: G93.0 Cerebral cysts (principal); G93.89 Other specified disorders of brain
CPT/HCPCS: 70553; A9575

== ENCOUNTER 2024-01-21 16:30 | Outpatient (CLI) | payer BC | END 2024-01-21 23:59 | disposition home or self-care (01) | LOC: MRI02 16:30 | PROVIDERS: ATTEND Physician Assistant | DX: M50.121 Cervical disc disorder at C4-C5 level with radiculopathy (principal); M48.02 Spinal stenosis, cervical region; M62.838 Other muscle spasm | CPT/HCPCS: 72141 ==